=== PATIENT | male | born 1995 | race Two or more races ===

== ENCOUNTER 2020-02-04 11:23 | Emergency (ER) | payer SELFPAY ==
[2020-02-04 11:30] VITALS: BP 145/79
--- NOTE | 2020-02-04 11:58 | ER Document Report ---
Entered by MICHELLE LAWRENCE SCRIBE 02/04/20 1144 Acting as scribe for:BO GRUBBS DO ED General - General Chief Complaint: Medical Clearance Stated Complaint: MEDICAL CLEARANCE Time Seen by Provider: 02/04/20 11:32 Primary Care Provider: RAFA SEO FNP-BC [NO LOCAL MD] - Follow up as needed Information source: Patient Notes: This 24-year-old male presents to the emergency department to receive medical clearance for a rehab center. Patient explains that he has to be tested for COVID-19 prior to entering the 2-year program. 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 Patient states that the court gave him 30 days to get tested and he still has 3 weeks remaining. Patient denies cough, fever, shortness of breath or recent travel. - Related Data Allergies/Adverse Reactions: No Known Allergies Allergy (Unverified 11/04/13 20:08) Past Medical History - General Information source: Patient - Social History Smoking Status: Never Smoker Cigarette use (# per day): No Chew tobacco use (# tins/day): No Drug Abuse: Cocaine, Heroin Family History: None - Medical History Medical History: Negative Surgical Hx: Negative - Immunizations Hx Diphtheria, Pertussis, Tetanus Vaccination: Yes - states UTD within 5 years Review of Systems - Review of Systems Constitutional: See HPI. denies: Fever EENT: No symptoms reported Cardiovascular: No symptoms reported Respiratory: See HPI. denies: Cough, Short of breath Gastrointestinal: No symptoms reported Genitourinary: No symptoms reported Male Genitourinary: No symptoms reported Musculoskeletal: No symptoms reported Skin: No symptoms reported Hematologic/Lymphatic: No symptoms reported Neurological/Psychological: No symptoms reported -: Yes All other systems reviewed and negative Physical Exam - Vital signs Vitals: Temp Pulse Resp BP Pulse Ox 98.9 F 79 14 145/79 H 100 02/04/20 11:27 02/04/20 11:27 02/04/20 11:27 02/04/20 11:27 02/04/20 11:27 - Notes Notes: Physical Exam: General: Alert, appears well. HEENT: Normocephalic. Atraumatic. PERRL. Extraocular movements intact. Oropharynx clear. Neck: Supple. Non-tender. Respiratory: No respiratory distress. Clear and equal breath sounds bilaterally. Cardiovascular: Regular rate and rhythm. Abdominal: Normal Inspection. Non-tender. No distension. Normal Bowel Sounds. Back: No gross abnormalities. Extremities: Moves all four extremities. Upper extremities: Normal inspection. Normal ROM. Lower extremities: Normal inspection. No edema. Normal ROM. Neurological: Normal cognition. AAOx4. Normal speech. Psychological: Normal affect. Normal Mood. Skin: Warm. Dry. Normal color. Course - Re-evaluation Re-evalutation: 02/04/20 11:58 MDM Pleasant 24 [address] order for covid testing to go to [facility] in [place], [place] for opiod addiction. No complaints. - Vital Signs Vital signs: Temp Pulse Resp BP Pulse Ox 98.9 F 79 14 145/79 H 100 02/04/20 11:27 02/04/20 11:27 02/04/20 11:27 02/04/20 11:27 02/04/20 11:27 Discharge - Discharge Clinical Impression: Examination Condition: Good Disposition: HOME, SELF-CARE Instructions: Normal Exam and Workup ([facility]) Additional Instructions: A covid 19 test was ordered. Please return here for problems or concerns including but not limited to chest pain, shortness of breath or other problems or concerns. Forms: Elevated Blood Pressure Referrals: RAFA SEO, [facility]PER[facility]-BC [NO LOCAL MD] - Follow up as needed I personally performed the services described in the documentation, reviewed and edited the documentation which was dictated to the scribe in my presence, and it accurately records my words and actions.
== END 2020-02-04 12:28 | disposition home or self-care (01) ==
LOC: ER 11:23
DX: Z11.59 Encounter for screening for other viral diseases (principal); F14.10 Cocaine abuse, uncomplicated; F11.10 Opioid abuse, uncomplicated
CPT/HCPCS: 87635; 99282

== ENCOUNTER 2020-05-21 17:27 | Emergency (ER) | payer SELFPAY ==
[2020-05-21 17:33] VITALS: BP 126/68
[2020-05-21] MEDS ORDERED: DEXAMETHASONE SOD PHOS INJ 10 MG/1 ML VIAL IM ONE (17:44)
[2020-05-21] MEDS ORDERED: FAMOTIDINE 20 MG TABLET PO ONE (17:45)
[2020-05-21] MEDS ORDERED: DOXYCYCLINE HYCLATE 100 MG TABLET PO ONE (17:45)
--- NOTE | 2020-05-21 17:45 | ER Document Report ---
HPI - HPI Time Seen by Provider: 05/21/20 17:44 Pain Level: 0 Notes: CHIEF COMPLAINT: multiple complaints HPI: 25-year-old male presenting for evaluation of multiple complaints. Patient states approximately a week ago he got into chiggers and ticks and now has multiple bite sites across bilateral lower legs. Patient developed an urticarial rash across the chest and arms also within the last 3 to 4 days. No fevers. No current respiratory difficulty difficulty speaking or difficulty swallowing ROS: See HPI - all other systems were reviewed and are otherwise negative Constitutional: no fever Eyes: no drainage, no blurred vision ENT: no runny nose, no sore throat Cardiovascular: no chest pain Resp: no SOB, no cough GI: no vomiting, no diarrhea, no abdominal pain : no dysuria Integumentary: + rash Allergy: + hives Musculoskeletal: no extremity pain or swelling Neurological: no numbness/tingling, no weakness MEDICATIONS: I agree with the patient medications as charted by the RN. ALLERGIES: I agree with the allergies as charted by the RN. PAST MEDICAL HISTORY/PAST SURGICAL HISTORY: Reviewed and agree as charted by RN. SOCIAL HISTORY: Reviewed and agree as charted by RN. FAMILY HISTORY: No significant familial comorbid conditions directly related to patient complaint EXAM: Reviewed vital signs as charted by RN. CONSTITUTIONAL: Alert and oriented and responds appropriately to questions. Well-appearing; well-nourished HEAD: Normocephalic; atraumatic EYES: PERRL; Conjunctivae clear, sclerae non-icteric ENT: normal nose; no rhinorrhea; moist mucous membranes; pharynx without lesions noted, no uvula edema or deviation, no tonsillar hypertrophy, phonation normal NECK: Supple without meningismus; non-tender; no cervical lymphadenopathy, no masses CARD: RRR; no murmurs, no clicks, no rubs, no gallops; symmetric distal pulses RESP: Normal chest excursion without splinting or tachypnea; breath sounds clear and equal bilaterally; no wheezes, no rhonchi, no rales, pulse oximetry 99% on room air not hypoxic ABD/GI: Normal bowel sounds; non-distended; soft, non-tender, no rebound, no guarding; no palpable organomegaly or masses. BACK: The back appears normal and is non-tender to palpation, there is no CVA tenderness EXT: Normal ROM in all joints; non-tender to palpation; no cyanosis, no effusions, no edema SKIN: Normal color for age and race; warm; dry; good turgor; multiple urticarial lesions across the abdomen, back, chest, upper arms. Multiple bite sites to the bilateral lower extremities with some cystic type structures and erythema NEURO: Moves all extremities equally; Motor and sensory function intact PSYCH: The patient's mood and manner are appropriate. Grooming and personal hygiene are appropriate. MDM: 25-year-old male with multiple trigger and tick bites to the lower extremities. Urticaria across the abdomen chest and arms. Will give Decadron, antihistamines. Patient will likely be placed on doxycycline to cover against cellulitis of the skin but also Cantil spotted fever and other tickborne illnesses - REPRODUCTIVE Reproductive: DENIES: : Past Medical History - Social History Smoking Status: Current Every Day Smoker Family History: None Patient has homicidal ideation: No - Immunizations Hx Diphtheria, Pertussis, Tetanus Vaccination: Yes - states UTD within 5 years Course - Vital Signs Vital signs: Temp Pulse Resp BP Pulse Ox 98.4 F 101 H 18 126/68 H 93 05/21/20 17:32 05/21/20 17:32 05/21/20 17:32 05/21/20 17:32 05/21/20 17:32 Discharge - Discharge Clinical Impression: Urticaria Tick bite Qualifiers: Encounter type: initial encounter Qualified Code(s): W57.XXXA - Bitten or stung by nonvenomous insect and other nonvenomous arthropods, initial encounter Cellulitis Qualifiers: Site of cellulitis: extremity Site of cellulitis of extremity: lower extremity Laterality: unspecified laterality Qualified Code(s): L03.119 - Cellulitis of unspecified part of limb Condition: Stable Disposition: HOME, SELF-CARE Instructions: Acute Urticaria ([facility]) Additional Instructions: Take the medications as prescribed, make sure you finish the antibiotics. Follow-up with a primary care provider for reevaluation of symptoms return for any concerns Prescriptions: Prednisone [Deltasone 20 mg Tablet] 2 tab PO DAILY 5 Days #10 tablet Doxycycline Monohydrate 100 mg PO BID #28 capsule Famotidine [Pepcid 20 mg Tablet] 20 mg PO BID #12 tablet Referrals: PAVEL LOVELL MD [COMMUNITY BASED STAFF] - Follow up as needed
[2020-05-21] MEDS ORDERED: DEXAMETHASONE SOD PHOS INJ 10 MG/1 ML VIAL ONE (18:00)
[2020-05-21] MEDS ORDERED: METHYLPREDNISOLONE INJ 125 MG/2 ML SDV IM ONE (18:04)
== END 2020-05-21 18:20 | disposition home or self-care (01) ==
LOC: ER 17:27
DX: L03.119 Cellulitis of unspecified part of limb (principal); L50.9 Urticaria, unspecified; S80.861A Insect bite (nonvenomous), right lower leg, initial encounter; S80.862A Insect bite (nonvenomous), left lower leg, initial encounter; R21 Rash and other nonspecific skin eruption; W57.XXXA Bitten or stung by nonvenomous insect and other nonvenomous arthropods, initial encounter
CPT/HCPCS: 99283; 96372; J2930